=== PATIENT | female | born 1985 | race Caucasian/White ===

== ENCOUNTER 2019-12-18 11:09 | Day surgery (SDC) | payer OTHER ==
[~2019-12-18] VITALS: Ht 154.9 cm; Wt 101.4 kg
[2019-12-18] MEDS ORDERED: Birth control PO (11:34)
[2019-12-18] MEDS ORDERED: CHLORHEXIDINE 15 ML UDC MM STA (11:35)
[2019-12-18] MEDS ORDERED: LIDOCAINE-MPF 1%, 2ML INFIL STA (11:35)
[2019-12-18 11:36] VITALS: BP 123/85
[2019-12-18] MEDS ORDERED: LACTATED RINGERS 1,000 ML IV ONE (11:38)
[2019-12-18] MEDS ORDERED: LIDOCAINE-MPF 2% ,5ML ONE (12:24)
[2019-12-18] MEDS ORDERED: PROPOFOL 10 MG/ML, 20ML ONE (12:24)
[2019-12-18] MEDS ORDERED: GLYCOPYRROLATE 0.2MG/1ML, 5ML ONE (12:24)
[2019-12-18] MEDS ORDERED: ROCURONIUM 10MG/ML,5ML ONE (12:24)
[2019-12-18] MEDS ORDERED: DEXAMETHASONE 4 MG/ML, 1ML ONE (12:24)
[2019-12-18] MEDS ORDERED: FENTANYL PF 250 MCG/5ML ONE (12:25)
[2019-12-18] MEDS ORDERED: MIDAZOLAM 1 MG/ML, 2ML ONE (12:25)
[2019-12-18] MEDS ORDERED: HYDROcodone/APAP 7.5-325MG/15ML UDC PO PRN (12:30)
[2019-12-18] MEDS ORDERED: METOCLOPRAMIDE 5 MG/ML, 2ML IVPush PRN (12:30)
[2019-12-18] MEDS ORDERED: ALBUTEROL/IPRATROPIUM 2.5MG/0.5MG, 3 ML NPPB PRN (12:30)
[2019-12-18] MEDS ORDERED: EPHEDRINE 50 MG/ML, 1ML IVPush PRN (12:30)
[2019-12-18] MEDS ORDERED: OXYcodone 5 MG/5 ML ORAL.SOL UDC PO PRN (12:30)
[2019-12-18] MEDS ORDERED: LORazepam 2 MG/ML, 1ML IVPush PRN (12:30)
[2019-12-18] MEDS ORDERED: KETOROLAC 30 MG/1 ML IVPush PRN (12:30)
[2019-12-18] MEDS ORDERED: MEPERIDINE/PF 25MG/0.5ML IVPush PRN (12:30)
[2019-12-18] MEDS ORDERED: ONDANSETRON 2MG/ML, 2ML IVPush PRN (12:30)
[2019-12-18] MEDS ORDERED: DIPHENHYDRAMINE 50 MG/ML, 1ML IVPush PRN (12:30)
[2019-12-18] MEDS ORDERED: EPHEDRINE 50 MG/ML, 1ML IM PRN (12:30)
[2019-12-18] MEDS ORDERED: HALOPERIDOL 5 MG/ML IV PRN (12:30)
[2019-12-18] MEDS ORDERED: LABETALOL 5MG/ML, 20ML IV PRN (12:30)
[2019-12-18] MEDS ORDERED: HYDROmorphone 1 MG/ML, 1ML INJ IVPush PRN (12:30)
[2019-12-18] MEDS ORDERED: ACETAMINOPHEN 325 MG TABLET PO PRN (12:30)
[2019-12-18] MEDS ORDERED: DIAZEPAM 5 MG/ML, 2ML IVPush PRN (12:30)
[2019-12-18] MEDS ORDERED: MIDAZOLAM 1 MG/ML, 2ML IV PRN (12:30)
[2019-12-18] MEDS ORDERED: FENTANYL PF 100 MCG/2ML IV PRN (12:30)
[2019-12-18] MEDS ORDERED: morphine SULFATE 10 MG/ML, 1ML IVPush PRN (12:30)
[2019-12-18] MEDS ORDERED: hydrALAzine 20 MG/ML, 1ML IV PRN (12:30)
[2019-12-18 12:38] LABS: HCG UR SG 1.029 (1.003-1.030)
[2019-12-18] MEDS ORDERED: BUPIVACAINE/PF-EPI 0.5% 1:200K ONE (13:14)
[2019-12-18] MEDS ORDERED: LIDOCAINE 1%, 20ML ONE (13:15)
[2019-12-18] MEDS ORDERED: BACITRACIN 50,000 UNIT ONE (13:15)
[2019-12-18] MEDS ORDERED: CEFAZOLIN 1,000 MG ONE (13:31)
== END 2019-12-18 17:50 | disposition home or self-care (01) ==
LOC: OUT 11:09
PROVIDERS: ATTEND Orthopaedic Surgery
DX: S61.217A Laceration without foreign body of left little finger without damage to nail, initial encounter (principal); Z11.59 Encounter for screening for other viral diseases; E66.01 Morbid (severe) obesity due to excess calories; Z68.41 Body mass index [BMI] 40.0-44.9, adult; X58.XXXA Exposure to other specified factors, initial encounter; Y93.89 Activity, other specified; Y92.89 Other specified places as the place of occurrence of the external cause; Y99.8 Other external cause status; Z72.89 Other problems related to lifestyle; Z98.890 Other specified postprocedural states
CPT/HCPCS: 64831; 81025; 87635; J0690; J1100; J2250; J2704; J3010; J7120